=== PATIENT | male | born 1975 | race Two or more races ===

== ENCOUNTER → 2024-08-12 | Emergency (ER) | payer OTHER ==
[~2024-08-12] VITALS: Ht 175.3 cm; Wt 81.6 kg
[~2024-08-12] MED LIST: CEFTRIAXONE SODIUM 1,000 MG VIAL IV ONE
== END | disposition home or self-care (01) ==
LOC: ER 09:03
DX: S51.812A Laceration without foreign body of left forearm, initial encounter (principal); X58.XXXA Exposure to other specified factors, initial encounter; Y93.89 Activity, other specified; Y92.69 Other specified industrial and construction area as the place of occurrence of the external cause; Y99.8 Other external cause status